=== PATIENT | male | born 1995 | race Caucasian/White ===

== ENCOUNTER 2017-12-14 17:19 | Emergency (ER) | payer BC ==
[2017-12-14] MEDS ORDERED: LORazepam 2 MG/ML INJ ONE (17:59)
[2017-12-14] MEDS ORDERED: LORazepam 2 MG/ML INJ IVP ONE (18:00)
[2017-12-14] MEDS ORDERED: NS 1,000 ML IV ONE (18:00)
--- NOTE | 2017-12-14 18:04 | EDPHY ---
H & P Time Seen by Provider: 12/14/17 17:32 HPI/ROS: CHIEF COMPLAINT: Anxiety, nausea, chest pain HISTORY OF PRESENT ILLNESS: 22-year-old male presents to the emergency department feeling extremely anxious, nauseous and having chest pain. The patient has a history of panic disorder and severe anxiety. He was using benzodiazepines including Xanax up to 16 mg a day and was in a treatment program where he was using Valium and taper down to 2.5 mg of Valium. He has not taken any benzodiazepines in over 1 month. He has a history of severe panic disorder since the age of 11. He complains of pain in his chest, tingling in his upper and lower extremities. Feels nauseous. No vomiting. He did eat today. His symptoms began abruptly around 445 this afternoon. He has had these same symptoms in the past. He occasionally woke "blacked out" with the symptoms. REVIEW OF SYSTEMS: Constitutional: No fever, no chills. Eyes: No double or blurry vision. ENT: No sore throat. Respiratory: Short of breath. No cough Cardiac: chest pain. Gastrointestinal: No abdominal pain, vomiting or diarrhea. Genitourinary: No dysuria. Musculoskeletal: No neck or back pain. Skin: No rashes. Neurological: No headache. Past Medical/Surgical History: Anxiety, substance abuse Social History: Single, from [place], [place] Smoking Status: Current every day smoker Physical Exam: General Appearance: Alert, very anxious. Hyperventilating. Eyes: Pupils equal and round. Extraocular motions are all intact. ENT: Mouth: Mucous membranes moist. Respiratory: No wheezing, rhonchi, or rales, lungs are clear to auscultation. Cardiovascular: Regular rate and rhythm. Tachycardic with heart rate of 110. Gastrointestinal: Abdomen is soft and nontender, no masses, no rebound or guarding, bowel sounds normal. Neurological: Alert and oriented x 3, cranial nerves II through XII grossly intact Skin: Warm and dry, no rashes. Musculoskeletal: Nontender to palpate along the cervical, thoracic or lumbar spine. Neck is supple. Extremities: Full range of motion and no peripheral edema. Psychiatric: Patient is oriented X 3, there is no agitation. Constitutional: Initial Vital Signs Temperature (C) 37.1 C 12/14/17 17:23 Heart Rate 91 12/14/17 17:23 Respiratory Rate 20 05/05/18 17:23 Blood Pressure 147/86 H 12/14/17 17:23 O2 Sat (%) 99 12/14/17 17:23 O2 Delivery Mode Room Air Allergies/Adverse Reactions: No Known Allergies Allergy (Unverified 12/14/17 17:21) Home Medications: Medication Instructions Recorded Clonidine 12/14/17 Gabapentin 12/14/17 Lamotrigine 12/14/17 [place] Carbonate 12/14/17 Quetiapine Fumarate 12/14/17 Zofran 12/14/17 Medical Decision Making ED Course/Re-evaluation: Patient had an IV established and was given a total of 2 mg of IV Ativan and IV normal saline. He was feeling much better. Patient was reexamined serially. Upon discharge, the patient is sitting upright on the bed looking at his phone. He is no longer anxious. The patient requested additional Ativan to go home with, however because of his history of benzodiazepine abuse and with him being and a sober living type facility, did not think this was indicated. He has been off of benzodiazepines for several weeks. He understands the habit-forming nature of this medication. I did encourage him to return to the emergency department if he developed recurring symptoms of anxiety, pain in his chest or difficulty breathing, or any other concerns. Differential Diagnosis: Including but not limited to substance abuse, anxiety, hyperventilation, electrolyte abnormality, dehydration - Data Points Laboratory Results: 12/14/17 17:45 Urine Opiates Screen NEGATIVE (NEGATIVE) Urine Barbiturates NEGATIVE (NEGATIVE) Ur Phencyclidine Scrn NEGATIVE (NEGATIVE) Ur Amphetamine Screen NEGATIVE (NEGATIVE) U Benzodiazepines Scrn NEGATIVE (NEGATIVE) Urine Cocaine Screen NEGATIVE (NEGATIVE) U Marijuana (THC) Screen NEGATIVE (NEGATIVE) Medications Given: Discontinued Medications Sodium Chloride (Ns) 1,000 mls @ 0 mls/hr IV ONCE ONE PRN Reason: Wide Open Stop: 12/14/17 18:01 Last Admin: 12/14/17 18:08 Dose: 1,000 mls Lorazepam (Ativan Injection) 1 mg IVP EDNOW ONE Stop: 12/14/17 18:01 Last Admin: 12/14/17 18:08 Dose: 1 mg Departure - Departure Disposition: Home, Routine, Self-Care Clinical Impression: Anxiety Condition: Good Instructions: Anxiety (ED) Additional Instructions: Follow-up with counselor/therapist as discussed. Your given 2 mg of IV lorazepam and 1 L of IV normal saline. Referrals: ANITHA WETZEL [Other] - As per Instructions
--- NOTE | 2017-12-14 18:22 | CPEKG ---
Heart Rate: 90 RR Interval: 667 P-R Interval: 168 QRSD Interval: 86 QT Interval: 364 QTC Interval: 446 P [place]: 61 QRS [place]: 76 T Wave [place]: 55 EKG Severity - NORMAL ECG - EKG Impression: SINUS RHYTHM Electronically Signed By: Beau White 14-Dec-2017 19:55:00
[2017-12-14 19:47] VITALS: BP 118/65
== END 2017-12-14 19:46 | disposition home or self-care (01) ==
DX: F41.9 Anxiety disorder, unspecified (principal); F17.200 Nicotine dependence, unspecified, uncomplicated
CPT/HCPCS: 80305; 96374; J2060

== ENCOUNTER 2018-01-02 10:26 | Emergency (ER) | payer BC ==
--- NOTE | 2018-01-02 11:13 | CPEKG ---
Heart Rate: 75 RR Interval: 800 P-R Interval: 168 QRSD Interval: 84 QT Interval: 360 QTC Interval: 402 P [place]: 63 QRS [place]: 88 T Wave [place]: 62 EKG Severity - NORMAL ECG - EKG Impression: SINUS RHYTHM Electronically Signed By: Charbel Bee 02-Jan-2018 13:52:31
--- NOTE | 2018-01-02 13:08 | EDPHY ---
H & P Time Seen by Provider: 01/02/18 12:44 HPI/ROS: CHIEF COMPLAINT: Chest pain and racing heart rate HISTORY OF PRESENT ILLNESS: This 22-year-old man has stopped all benzodiazepines about 7 rate weeks ago including Klonopin and Xanax. He has been having intermittent panic attacks since then and states that they are just worse over the last 4 days. He will get episodes aureus his heart racing and will developed chest tightness and left arm and jaw pain and lasts anywhere from 30 min to the entire day. He has had these every day for the last 4 days. He states that he just"wants to know that this isn't my heart."He denies any cocaine in the past couple of months. He does not have a family history of premature coronary disease. Does not have diabetes hypertension or hypercholesterolemia. No recent trauma or immobilization. The symptoms are not specifically related to any time of day activity or anything in particular. REVIEW OF SYSTEMS: Eye: no change in vision ENT: no sore throat Cardiac: HPI, no syncope Pulmonary: No hemoptysis and not short of breath Abdomen: no vomiting, diarrhea, abdominal pain Musculoskeletal: no back pain or leg swelling, associated symptoms include diffuse myalgias with his symptoms including all extremities. Skin: no rash Neuro: no headache Constitutional: no fever : no urinary symptoms A comprehensive 10 point review of systems is otherwise negative aside from elements mentioned in the history of present illness. PAST MEDICAL HISTORY: Includes benzodiazepines and anxiety as above, left ankle surgery with a plate and screws. Family history: Negative for premature coronary disease or venous thromboembolism. Social history: Used to smoke but quit 2 months ago, no drugs as outlined as above. General Appearance: Alert and conversant, cooperative. Eyes: No scleral icterus. ENT, Mouth: Normal mucous membranes. Respiratory: Normal respiratory effort, breath sounds equal, lungs are clear to auscultation. Cardiovascular: Regular rate and rhythm. Gastrointestinal: Abdomen is soft and non tender. Neurological: Alert, face symmetric, normal motor and sensory in extremities. Skin: Warm and dry, no rashes. Musculoskeletal: No peripheral edema. No calf tenderness. Psychiatric: Mildly anxious. Emergency Department course/MDM: Patient has a normal EKG. He takes lithium and Seroquel.. His CPK and lithium level are both within normal limits. I think it is unlikely the patient is having ACS or [place], pulmonary embolism, rhabdomyolysis, or other acute medical or surgical emergency. I reassured him he likely is having his symptoms from stress and anxiety. He will follow up with his primary care provider. Smoking Status: Current every day smoker Constitutional: Initial Vital Signs Temperature (C) 36.7 C 01/02/18 10:30 Heart Rate 91 01/02/18 10:30 Respiratory Rate 20 01/02/18 10:30 Blood Pressure 133/75 H 01/02/18 10:30 O2 Sat (%) 96 01/02/18 10:30 O2 Delivery Mode Room Air Allergies/Adverse Reactions: No Known Allergies Allergy (Verified 01/02/18 10:30) Home Medications: Medication Instructions Recorded Clonidine 12/14/17 Gabapentin 12/14/17 Lamotrigine 12/14/17 [place] Carbonate 12/14/17 Quetiapine Fumarate 12/14/17 Zofran 12/14/17 Medical Decision Making - Diagnostics EKG Interpretation: 12-lead EKG interpreted by me; official reading is in trace master. My interpretation is sinus rhythm without evidence of ischemia, normal rate and intervals. Differential Diagnosis: Differential diagnosis considered for chest pain including but not limited to myocardial ischemia, aortic dissection, pericarditis, pulmonary embolus, chest wall pain, pleural inflammation and pulmonary infectious causes. - Data Points Laboratory Results: 01/02/18 13:15 Creatine Kinase 81 IU/L IU/L (0-224) [place] 0.7 mEq/L mEq/L (0.6-1.2) Departure - Departure Disposition: Home, Routine, Self-Care Clinical Impression: Anxiety Chest pain Qualifiers: Chest pain type: unspecified Qualified Code(s): R07.9 - Chest pain, unspecified Condition: Good Instructions: Chest Pain (ED) Additional Instructions: Normal EKG. I think it is unlikely that your chest pain represents a heart problem. Call the emergency department this afternoon for results of your lab tests, . Referrals: NONE *PRIMARY CARE P,. [Primary Care Provider] - As per Instructions Harper Villaseñor MD [Medical Doctor] - As per Instructions
[2018-01-02 13:17] VITALS: BP 125/74
[2018-01-02 13:38] LABS: CREATINE KINASE 81 IU/L (0-224)
== END 2018-01-02 13:16 | disposition home or self-care (01) ==
DX: R07.9 Chest pain, unspecified (principal); F41.9 Anxiety disorder, unspecified; F17.200 Nicotine dependence, unspecified, uncomplicated

== ENCOUNTER 2018-02-05 10:59 | Emergency (ER) | payer BC ==
[2018-02-05] MEDS ORDERED: NS 1,000 ML IV ONE (11:31)
--- NOTE | 2018-02-05 11:33 | EDPHY ---
H & P Stated Complaint: has recently tapered off all psych meds except lithium/ burning skin anxiety Time Seen by Provider: 02/05/18 11:16 HPI/ROS: CHIEF COMPLAINT: Multiple complaints, see HPI HISTORY OF PRESENT ILLNESS: 22-year-old male history of anxiety and panic disorder, prior diagnosis of bipolar disorder which patient states was an incorrect diagnosis, took into her to the ER from his sober longterm for multiple complaints which have been occurring for the past several weeks including, hyperesthesia, difficulty sleeping, anxiety, intermittent nausea and vomiting without abdominal pain. Denies suicidal or homicidal ideation. Denies hallucination. Denies urinary abnormality. Denies testicle pain. Denies head injury. Denies major or minor head or neck trauma or manipulation. REVIEW OF SYSTEMS: A ten point review of systems was performed and is negative with the exception of the items mentioned in the HPI PAST MEDICAL & SURGICAL HISTORY: Self-described diagnosis of panic and anxiety disorder. States that he has previously been diagnosed with bipolar disorder and is taking medications for this but states that he did not think he has bipolar disorder. SOCIAL HISTORY: Prior substance abuse history, prior benzodiazepine dependence, has been sober for several months from alcohol and drugs including benzodiazepine PHYSICAL EXAM (Prior to examination, patient consented to physical exam, hands were washed and my usual and customary physical exam procedures followed) 1) GENERAL: Well-developed, well-nourished, alert and oriented. Appears to be in no acute distress. 2) HEAD: Normocephalic, atraumatic 3) HEENT: Pupils equal, round, reactive to light bilaterally. Sclera anicteric. [Nasopharynx, oropharynx, clear, no lesions. Moist mucous membranes 4) NECK: Full range of motion, no meningeal signs. 5) LUNGS: Clear auscultation bilaterally, no wheezes, no rhonchi, no retractions. 6) HEART: Regular rate and rhythm, no murmur, no heave, no gallop. 7) ABDOMEN: No guarding, no rebound, no focal tenderness, negative McBurney's, negative Barboza's, negative Rovsing's, negative peritoneal sign, 8) MUSCULOSKELETAL: Right lower extremity: Between the 3rd and 4th toe evidence of tinea pedis with vesicular lesions on the dorsal aspect of the foot , excoriated, possibly secondary to poison ivory dermatitis. No evidence of super infection. Otherwise, Moving all extremities, no focal areas of tenderness, no obvious trauma. No peripheral edema or discoloration. 9) BACK: No CVA tenderness, no midline vertebral tenderness, no fluctuance, no step-off, no obvious trauma, no visual or palpable abnormality. 10) SKIN: No rash, no petechiae. 11) Psychiatric: Patient is oriented X 3, there is no agitation. 12) DIFFERENTIAL DIAGNOSIS: In no particular include but limited to psychosomatic etiology, nontherapeutic medication levels, anxiety - Personal History Current Tetanus Diphtheria and Acellular Pertussis (TDAP): Yes - Medical/Surgical History Hx Asthma: No Hx Chronic Respiratory Disease: No Hx Diabetes: No Hx Cardiac Disease: No Hx Renal Disease: No Hx Cirrhosis: No Hx Alcoholism: No Hx HIV/AIDS: No Hx Splenectomy or Spleen Trauma: No Other PMH: benzo abuse - Social History Smoking Status: Current every day smoker Constitutional: Initial Vital Signs Temperature (C) 36.7 C 02/05/18 11:05 Heart Rate 71 02/05/18 11:05 Respiratory Rate 18 02/05/18 11:05 Blood Pressure 120/72 02/05/18 11:05 O2 Sat (%) 97 02/05/18 11:05 O2 Delivery Mode Room Air Allergies/Adverse Reactions: No Known Allergies Allergy (Verified 01/02/18 10:30) Home Medications: Medication Instructions Recorded Clonidine 12/14/17 Gabapentin 12/14/17 Lamotrigine 12/14/17 [place] Carbonate 12/14/17 Quetiapine Fumarate 12/14/17 Zofran 12/14/17 Medical Decision Making ED Course/Re-evaluation: 12:14 p.m.: Re-evaluation with serial examinations. He remains with a nonfocal neurologic examination. Discussed his laboratory studies including a therapeutic lithium level. He is answering questions appropriately no evidence of altered mentation. He is tolerating oral intake well, states that he is hungry. We discussed the multiple possible etiologies for his subjective complaints. We discussed possibility of psychosomatic etiology. At this time I do not think that hospitalization or further diagnostic studies are indicated. In addition he denies suicidal or homicidal ideations. Recommend follow up with primary care and with his therapist. He feels comfortable being discharged. All questions and concerns addressed by myself. I saw this patient independently based on established practice protocols. Care of patient under supervision of primary Supervising physician Dr Amaya. - Data Points Laboratory Results: Laboratory Results 02/05/18 11:36 02/05/18 11:36 02/05/18 02/05/18 11:36 11:36 WBC 7.74 10^3/uL 10^3/uL (3.80-9.50) RBC 4.73 10^6/uL 10^6/uL (4.40-6.38) Hgb 14.6 g/dL g/dL (13.7-17.5) Hct 43.9 % % (40.0-51.0) MCV 92.8 fL fL (81.5-99.8) MCH 30.9 pg pg (27.9-34.1) MCHC 33.3 g/dL g/dL (32.4-36.7) RDW 12.5 % % (11.5-15.2) Plt Count 317 10^3/uL 10^3/uL (150-400) MPV 9.2 fL fL (8.7-11.7) Neut % (Auto) 59.3 % % (39.3-74.2) Lymph % (Auto) 24.7 % % (15.0-45.0) [place] % (Auto) 8.8 % % (4.5-13.0) Eos % (Auto) 6.3 % % (0.6-7.6) Baso % (Auto) 0.6 % % (0.3-1.7) Nucleat RBC Rel Count 0.0 % % (0.0-0.2) Absolute Neuts (auto) 4.59 10^3/uL 10^3/uL (1.70-6.50) Absolute Lymphs (auto) 1.91 10^3/uL 10^3/uL (1.00-3.00) Absolute Monos (auto) 0.68 10^3/uL 10^3/uL (0.30-0.80) Absolute Eos (auto) 0.49 10^3/uL H 10^3/uL (0.03-0.40) Absolute Basos (auto) 0.05 10^3/uL 10^3/uL (0.02-0.10) Absolute Nucleated RBC 0.00 10^3/uL 10^3/uL (0-0.01) Immature Gran % 0.3 % % (0.0-1.1) Immature Gran # 0.02 10^3/uL 10^3/uL (0.00-0.10) Sodium 142 mEq/L mEq/L (135-145) Potassium 4.2 mEq/L mEq/L (3.3-5.0) Chloride 106 mEq/L mEq/L (97-110) Carbon Dioxide 24 mEq/l mEq/l (22-31) Anion Gap 12 mEq/L mEq/L (8-16) BUN 12 mg/dL mg/dL (7-23) Creatinine 1.1 mg/dL mg/dL (0.7-1.3) Estimated GFR > 60 Glucose 83 mg/dL mg/dL (70-100) Calcium 10.1 mg/dL mg/dL (8.5-10.4) [place] 0.7 mEq/L mEq/L (0.6-1.2) Medications Given: Discontinued Medications Sodium Chloride (Ns) 1,000 mls @ 0 mls/hr IV ONCE ONE PRN Reason: Wide Open Stop: 02/05/18 11:32 Last Admin: 02/05/18 11:38 Dose: 1,000 mls Departure - Departure Disposition: Home, Routine, Self-Care Clinical Impression: Hyperesthesia Condition: Good Instructions: [place] (By mouth) Additional Instructions: Return to the ER if you develop new or worsening symptoms or any other symptoms that concern you. Referrals: Candace Ray MD [Medical Doctor] - 2-3 days, call for appt. Follow-up, with your therapist in 1 day [Other] - As per Instructions
[2018-02-05 11:54] LABS: PLATELET COUNT 317 10^3/uL (150-400)
[2018-02-05 12:32] VITALS: BP 118/75
== END 2018-02-05 12:32 | disposition home or self-care (01) ==
DX: R20.3 Hyperesthesia (principal); F17.200 Nicotine dependence, unspecified, uncomplicated

== ENCOUNTER 2018-02-15 15:04 | Emergency (ER) | payer BC ==
--- NOTE | 2018-02-15 15:15 | CPEKG ---
Heart Rate: 95 RR Interval: 632 P-R Interval: 172 QRSD Interval: 86 QT Interval: 344 QTC Interval: 433 P [place]: 67 QRS [place]: 84 T Wave [place]: 51 EKG Severity - NORMAL ECG - EKG Impression: SINUS RHYTHM Electronically Signed By: Petr Drake 20-Feb-2018 16:35:27
--- NOTE | 2018-02-15 15:28 | EDPHY ---
HPI/HX/ROS/PE/MDM Narrative: CHIEF COMPLAINT: Tachycardia, chest pain HISTORY OF PRESENT ILLNESS: This patient is a 22 year old male. Today, out to lunch with father and he developed tachycardia. He had associated shooting pain in his left arm, jaw pain, nausea, and chest discomfort. He had paresthesias and a burning sensation in his skin, and was diaphoretic. He did not vomit. No syncope. He is currently feeling better. The patient states he has had several similar episodes in the past, and he has been evaluated twice at this emergency department for similar symptoms. He states his heart rate increases to 150-170bpm while at rest. He has not undergone outpatient cardiac workup or had a Holter monitor study. 90 days ago, the patient moved to [place] for detox for benzodiazepines. He has had multiple evaluations for "post addiction withdrawal symptoms". He follows up with three psychiatrists including Dr. Keene at the [facility] in [facility]. Additionally, the patient complains of frequent gastrointestinal discomfort and states he vomits 3 days per week and has diarrhea 6 days per week. He denies hematemesis or hematochezia. He does not have a local primary care provider and has not followed up regarding these symptoms. No fever, chills , shortness of breath, urinary complaints, headache, lightheadedness. REVIEW OF SYSTEMS: Aside from elements discussed in the HPI, a comprehensive 10-point review of systems was reviewed and is negative. PAST MEDICAL HISTORY: History of benzodiazepine abuse. Anxiety (trazodone for sleep). Bipolar disorder ([place]). SOCIAL HISTORY: Father at bedside. Living in sober living in [place]. From [place]. History of benzodiazepine abuse, sober 90 days. VITAL SIGNS: Reviewed by me GENERAL: Well-developed, well-nourished, resting comfortably in no respiratory distress. HEENT: Atraumatic. Eyes: No icterus, no injection. Mouth: moist mucous membranes. No erythema or lesions. Neck: supple with no adenopathy. LUNGS: Clear to auscultation bilaterally, no wheezes, rhonchi or rales. CARDIAC: Regular rate and rhythm, no rubs, murmurs or gallops. ABDOMEN: Soft, nontender, nondistended, bowel sounds normal. BACK: No CVA tenderness. EXTREMITIES: No trauma. No edema. Range of motion is normal throughout. NEURO: Alert and oriented, grossly nonfocal. SKIN: Warm and dry, no rash. PSYCHIATRIC: Normal mentation, no agitation. Portions of this note were transcribed by a medical care manager. I personally performed a history, physical exam, medical decision making, and confirmed accuracy of information the transcribed note. ED Course: 22-year-old male presented emergency department with complaints of chest discomfort, radiating to the left jaw and left arm, tingling in both arms, and significant tachycardia. This developed while he was with his father at lunch. Symptoms lasted for approximately 45 min. He has had these symptoms previously. Patient also reports daily episodes of nausea and vomiting and diarrhea. With respect to his cardiac history, patient has not had Holter monitor or echocardiogram. EKG demonstrates sinus rhythm, no ischemic changes, no delta waves. IV was placed and labs were ordered. Patient urine tox screen also sent. 15:55 POC Troponin 0.00 Laboratory studies otherwise unremarkable. Urine tox screen is negative. Plan to discharge home in good condition with referral to cardiology. I recommend Holter monitor study. I also provided a referral to a local primary care physician. The patient understands follow up and return precautions. He and his father are comfortable with this plan. MDM: After history and physical examination, the differential for chest pain and tachycardia was considered, including but not limited to, myocardial ischemia, acute coronary syndrome, pulmonary embolus, drug abuse, drug or alcohol withdrawl, anxiety, SVT, arrhythmias, chest wall pain, pleural inflammation and pulmonary infectious causes. - Data Points Laboratory Results: Laboratory Results 02/15/18 17:08 02/15/18 17:08 Medications Given: Discontinued Medications Sodium Chloride (Ns) 500 mls @ 0 mls/hr IV EDNOW ONE; Wide Open PRN Reason: Protocol Stop: 02/15/18 16:55 Last Admin: 02/15/18 17:01 Dose: Not Given Point of Care Test Results: Chemistry 02/15/18 15:45 POC Troponin I 0.00 ng/mL ng/mL (0.00-0.08) General Time Seen by Provider: 02/15/18 15:21 Initial Vital Signs: Initial Vital Signs Temperature (C) 36.9 C 02/15/18 15:04 Heart Rate 102 H 02/15/18 15:04 Respiratory Rate 22 H 02/15/18 15:04 Blood Pressure 149/82 H 02/15/18 15:04 O2 Sat (%) 96 02/15/18 15:04 O2 Delivery Mode Room Air Allergies/Adverse Reactions: No Known Allergies Allergy (Verified 02/15/18 15:04) Home Medications: Medication Instructions Recorded [place] Carbonate 12/14/17 Departure - Departure Disposition: Home, Routine, Self-Care Clinical Impression: Tachycardia Condition: Good Instructions: Tachycardia (ED) Additional Instructions: Please follow up with a hardness inspector as directed blow. My suggestion is that you should have a Holter monitor to see what rhythm you are experiencing when you feel your rapid heart rate. Please follow up with primary care physician. Please consider taking a 14 day course of omeprazole. This is available over- the-counter, and is treatment for heartburn, indigestion, GERD. It may help with you're ongoing nausea and intermittent vomiting. Referrals: Fito Wolf MD [Medical Doctor] - As per Instructions Lucia Cross MD [Medical Doctor] - As per Instructions Report Scribed for: Valentine Gaffney Report Scribed by: Mandy Murguia Date of Report: 02/15/18 Time of Report: 16:46
[2018-02-15] MEDS ORDERED: NS 500 ML IV ONE (16:54)
[2018-02-15 17:22] VITALS: BP 113/62
[2018-02-15 17:30] LABS: PLATELET COUNT 371 10^3/uL (150-400)
== END 2018-02-15 17:52 | disposition home or self-care (01) ==
DX: R00.0 Tachycardia, unspecified (principal)
CPT/HCPCS: 80305; 84484-PO